=== PATIENT | male | born 1950 | race Caucasian/White ===

== ENCOUNTER 2022-09-09 09:26 | Inpatient (IN) ==
[2022-09-09] MEDS ORDERED: SODIUM CHLORIDE 0.9% 500 ML IV ONE (09:42)
[2022-09-09 10:07] LABS: Hematocrit (blood only) 25.4 % (40.1-51.0); Hemoglobin 8.1 g/dl (14.0-18.0); Mean Corpuscular Hemoglobin 28.9 pg (25.0-34.0); Mean Corpuscular Hgb Conc 31.9 g/dL (32.0-36.0); Mean Corpuscular Volume 90.7 fL (80.0-100.0); Mean Platelet Volume 9.2 fL (9.4-12.4); Platelet Count 452 K/uL (130-400); RDW Coefficient of Variation 13.7 % (11.5-14.5); RDW Standard Deviation 45.5 fL (36.4-46.3)
[2022-09-09 10:27] LABS: Immature Granulocytes # (auto) 0.03 K/uL (0.00-0.02); Immature Granulocytes % (auto) 0.7 %; Lymphocytes # (auto) 0.04 K/uL (1.2-3.4); Monocytes # (auto) 0.01 K/uL (0.24-0.82); Monocytes % (auto) 0.2 %; Neutrophils # (auto) 4.12 K/uL (1.4-6.5); Neutrophils % (auto) 98.1 %
[2022-09-09 10:36] LABS: Troponin I High Sensitivity 36.2 pg/ml (0-20)
[2022-09-09 10:45] LABS: Albumin Globulin Ratio 1.2 (0.9-2); Albumin Level 3.1 gm/dl (3.4-5.0); Bilirubin,Total 0.6 mg/dl (0.2-1.0); Calcium 8.4 mg/dl (8.5-10.1); Creatinine Clr Calc Pharmacy 43.8 ml/min; Est GFR (African American) 48.8 ml/min; Est GFR (Non-African American) 42.1 ml/min; Globulin 2.5 gm/dl (2.5-4.0); Total Protein 5.6 gm/dl (6.0-8.3)
--- NOTE | 2022-09-09 10:50 | XRay Report ---
XR chest 1V portable HISTORY: weakness COMPARISON: None. FINDINGS: No pneumothorax. No pleural effusions. There is mild elevation of the right hemidiaphragm. No focal lung consolidations to suggest a pneumonia. No evidence for pulmonary edema. The heart is no rmal in size. IMPRESSION: Mild elevation of the right hemidiaphragm. Otherwise, no acute process within the chest. ACT 112: Negative or not required by law. Electronically signed by: Rick Hilton M.D. 09/09/2022 10:49 AM
[2022-09-09] MEDS ORDERED: SODIUM CHLORIDE 0.9% 1000ML 1,000 ML IV SCH ×2 (12:15→16:00)
[2022-09-09] MEDS ORDERED: DOXYCYCLINE HYCLATE 100 MG in DEXTROSE 5% 100 ML IV SCH (12:15)
[2022-09-09] MEDS ORDERED: VANCOMYCIN CONSULT ACTIVE PRN (12:56)
[2022-09-09 13:09] LABS: Influenza A virus by PCR Negative (Negative); Influenza B virus by PCR Negative (Negative)
[2022-09-09] MEDS: ERTAPENEM SODIUM 1,000 MG in SYRINGE 0 ML IV SCH (13:15)
--- NOTE | 2022-09-09 13:24 | CT Scan Report ---
CT SCAN OF THE BRAIN WITHOUT IV CONTRAST CLINICAL HISTORY: Change in mental status. Presyncope. COMPARISON STUDY: No priors. TECHNIQUE: Unenhanced axial CT scan of the brain is performed from the vertex to the skull base. A do se lowering technique was utilized adhering to the principles of ALARA. CT DOSE: 1228.24 mGy.cm FINDINGS: Brain parenchyma: There is an approximately 5 x 4 cm extra-axial calcified right parafalcine mass in the right frontal lobe seen on axial image #25. There is minimal surrounding edema, and the lesion ca uses approximately 7 mm of [id number]-[id number] midline shift. There is age-related involutional change not ing minimal microangiopathic disease. No hemorrhage is seen. There is no evidence of acute territoria l ischemia by CT criteria. Myers-white matter differentiation is preserved. No extra-axial fluid colle ction is seen. Ventricles, sulci, cisterns: Prominent secondary to involutional change. Intracranial vasculature: There is minimal atherosclerotic calcification of the cavernous carotid art eries. Calvarium: Unremarkable. Sinuses and mastoids: The paranasal sinuses are clear. The mastoid air cells are well pneumatized. Orbits: The bony orbits are grossly intact. IMPRESSION: 1. There is no hemorrhage or evidence of acute territorial ischemia by CT criteria. 2. There is an approximately 5 cm densely calcified extra-axial right parafalcine mass in the frontal region with minimal surrounding edema and mild localized right to left midline shift. The appearance is typical for a large meningioma. Neurosurgical evaluation is advised. ACT 112: Negative or not required by law. Electronically signed by: Victor Manuel Carter M.D. 09/09/2022 1:22 PM
--- NOTE | 2022-09-09 13:31 | CT Scan Report ---
ABDOMEN AND PELVIS CT WITHOUT CONTRAST CT DOSE: 432.15 mGy.cm HISTORY: sepsis, uti TECHNIQUE: Multiaxial CT images of the abdomen and pelvis were performed without contrast. A dose lo wering technique was utilized adhering to the principles of ALARA. COMPARISON STUDY: None. FINDINGS: Mild dependent changes seen within the lung bases. No pneumoperitoneum. No pneumatosis. Deg enerative changes within the lumbar spine. No acute fractures. The heart is borderline enlarged. Magaly nary artery calcifications are noted. The unenhanced spleen, adrenal glands, and pancreas unremarkabl e. There are 2 hypodense lesions within the left kidney with the largest in the upper pole measuring 5.5 cm. These are incompletely characterized on this noncontrast study but favor cysts. There is mild to moderate bilateral perinephric edema. No ureteral stones. No hydronephrosis. Mild bladder wall th ickening with adjacent fat stranding. There is also mild fat stranding surrounding the mildly enlarge d prostate gland. No pelvic free fluid. No retroperitoneal lymphadenopathy. Normal caliber abdominal aorta. The gallbladder is unremarkable. Suspect mild periportal edema. No pelvic free fluid. Suboptim al evaluation for bowel pathology due to the lack of intravenous and oral contrast. However, there is no definite bowel wall thickening or obstruction. Moderate fecal retention is noted. Normal appendix . There are few prominent gas and fluid-filled loops of proximal jejunum. However, no transition poin t to suggest a bowel obstruction at this time. IMPRESSION: 1. Mild bladder wall thickening with adjacent fat stranding. This favors a mild cystitis. Is also mil d fat stranding adjacent to the enlarged prostate gland which may represent associated prostatitis. 2. Moderate bilateral perinephric edema. This may be chronic. A bilateral pyelonephritis is considere d less likely but not entirely excluded. 3. No renal or ureteral stones. No hydronephrosis. 4. No definite bowel wall thickening or obstruction. There are few prominent gas and fluid-filled loo ps of proximal jejunum. However, no transition point to suggest a bowel obstruction at this time. 5. Suspect mild periportal edema. 6. Normal appendix. ACT 112: Negative or not required by law. Electronically signed by: Rick Hilton M.D. 09/09/2022 1:29 PM
--- NOTE | 2022-09-09 13:43 | History and Physical Report ---
DATE OF ADMISSION: 09/09/2022 CHIEF COMPLAINT: Shaking chills, falls. HISTORY OF PRESENT ILLNESS: A 72-year-old male with past medical history significant for type 2 diabetes, hyperlipidemia, incomplete right bundle-branch block, history of hypertension, history of right-sided chronic mastoiditis, eustachian tube dysfunction, sensorineural hearing loss, chronic otitis externa of right ear, history of left inguinal hernia, who was brought in because he was falling frequently at home and shaking chills. His sister lives with him. His sister later came to the hospital. As per his sister for the last 2 weeks, he is falling frequently, he is not losing consciousness, but he is falling down. It was bad the week before , but since this week, it is better. He was seen by PCP on 08/26 for dysuria, fever and balance problems and was prescribed Bactrim. His urine cultures came back as ESBL E. coli. 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 The patient is somewhat tachycardic in the ER, he is afebrile. He was given a fluid bolus His hemoglobin is 8.1. The patient's white count is 4.2, creatinine 1.5. Troponin 36.2. SARS-CoV-2 rapid test negative. Chest x-ray, no acute findings. The patient is resting comfortably. He is getting on and off shaking chills. He said he has some headache earlier, but was okay now. Earlier he also had nausea, that is okay now. Denies any blurred visions, no earaches. Has some runny nose, sore throat and dry cough. Denies any chest pain, no back pain, no abdominal pain, no shortness of breath. He states after a colonoscopy in 05/2022, he had a couple of days of black stools, but after that he never had any black stools or blood in the stools. He is peeing a lot. Denies any blood in the urine or burning micturition, no swelling in the legs, no rash. ALLERGIES: No known drug allergies. PAST MEDICAL HISTORY: As mentioned above. PAST SURGICAL HISTORY: Colonoscopies, dental surgery, EGD with biopsy, skin graft to left arias, tonsillectomy, adenoidectomy, right inguinal hernia repair. MEDICATIONS: The patient is on aspirin 81 mg p.o. daily, atorvastatin 10 mg p.o. at bedtime, losartan/hydrochlorothiazide 100/25 one tablet p.o. daily, metformin 1000 mg p.o. b.i.d., Bactrim 1 tablet p.o. b.i.d. FAMILY HISTORY: Significant for brother has throat cancer, diabetes; Mother had diabetes, hypertension and stroke; sister has brain cancer. SOCIAL HISTORY: His sister lives with him. Former user of smokeless tobacco, quit in 1998. No alcohol use. No drug use. REVIEW OF SYSTEMS: As per HPI. Rest of the review of systems is negative. PHYSICAL EXAMINATION: GENERAL: The patient is of moderate build, not in acute distress. VITAL SIGNS: Temperature 37.1, pulse 113, respiratory rate 18, blood pressure 120/62, oxygen 97% on room air. HEENT: Pupils equal, round and reactive to light. Oral mucosa moist. NECK: No JVD, no neck masses. CARDIOVASCULAR: S1 and S2 heard, tachycardia. No murmurs. RESPIRATORY SYSTEM: Normal AP diameter. No accessory muscle use. No wheezing, no crackles. ABDOMEN: Soft, bowel sounds present, nontender, no distention. CENTRAL NERVOUS SYSTEM: Alert and oriented x3. Speech is clear. No facial droop. Obeys simple commands. Insight is okay. Power 5/5 in all extremities. EXTREMITIES: No edema, no erythema. LABORATORY DATA: WBC 4.2, hemoglobin 8.1, hematocrit 25.4, platelets 452. Sodium 140, potassium 4, chloride 104, bicarbonate 17, BUN 27, creatinine 1.59, serum glucose 157, calcium 8.4, total bilirubin 0.6, AST 60, ALT 46, alkaline phosphatase 174. Troponin I high sensitivity 36.2. TSH 1.3. SARS-CoV-2 rapid test negative. IMAGING: Chest x-ray: Mild elevation of right hemidiaphragm, otherwise no acute process within the chest. EKG: Sinus tachycardia at a rate of 105, QTc of 504. ASSESSMENT AND PLAN: This is a 72-year-old male who presents with possible sepsis and urinary tract infection. 1. Severe Sepsis/Septic shock : Meets criteria with tachycardia, leukopenia, extended-spectrum beta-lactamase urinary tract infection, acute kidney injury. Lactic acid came at 5.1 We will follow repeat actic acids. Given total 3lts fluid bolus then maintenance at 125 mL per hour. We will place him on Invanz, also place him on IV vancomycin. The patient has cough and bronchitis. His COVID rapid test negative. t flu and RSV tests negative. Await, blood cultures, urine cultures. Closely monitor in the ICU. Appreciate critical acre help. Will Monitor for the response. 2. Frequent falls: Possibly from the ongoing infection and hypotension. The patient was hypotensive per the emergency medical services. We will monitor. Physical therapy and occupational therapy when stable. 3. Anemia: The patient denies any bleeding or any blood in stools or black stools currently. We will follow Hemoccults, iron studies, vitamin B12, folate levels. Hemoglobin is 8.1. Blood consent obtained. If Hemoccult comes back positive, we will consult gastrointestinal. 4. Acute kidney injury: Creatinine of 1.59. Baseline creatinine was 1.1 couple of weeks ago. Getting fluids. Avoid nephrotoxic agents. Follow the repeat laboratories. 5. Prolonged QTc on electrocardiogram with QTc of 504: We will avoid QT prolonging drugs. Follow repeat electrocardiograms. 6. Diabetes: Holding his metformin. Place on insulin sliding scale. Follow the blood sugars. We will also hold aspirin until Hemoccult studies comes back. 7. Hyperlipidemia: On statin. 8. Hypertension: Hold his home medication of Hyzaar as currently patient is in sepsis. We will monitor the blood pressure. 9. Deep venous thrombosis prophylaxis: Sequential compression devices for now. If the Hemoccult is negative, place him on heparin or Lovenox. Addendum: Ct abd/pelvis shows cystitis and possible prostatitis. Urology consult if stays here. CT head: 5 cm densely calcified extra-axial right parafalcine mass in the frontal region with minimal surrounding edema and mild localized right to left midline shift. The appearance is typical for a large meningioma.Discussed with Neurosurgery at [facility] and he says if presenting complaints is from sepsis he can be treated for sepsis and followed as out patient. Otherwise to transfer to [facility] and he said even he wont be doing any procedures until sepsis under control. D/W our critical care and was advised to transfer as patinet has midline shift and possible cause of his falls.Called back [facility] and d/w ICU and he was opinion that since the brain mass is calcified it might be slow growing and since midline shift only 7mm nothing acute a this time but he advised to talk to hospitalist for transfer. [facility] hospitalist seasoner hand seems again discussed with and and was ok for transfer but they don't have any beds today. Possible transfer in 24-48hrs. Also to call [facility] and let them know if any change in status of patient , if he gets intubated on needs any pressors. Completed paper work for transfer except d/c instructions. As the repeat lactic acid is 4.2 d/w our critical care again and were ok to transfer to ICU until patient is transferred to [facility].Appreciate critical care help. DISPOSITION: Closely monitor in ICU. Level 1, full code. PT, OT prior to discharge. Social service to help with discharge planning. Job ID: [id number] MTDD
[2022-09-09] MEDS ORDERED: VANCOMYCIN HCL 2,000 MG in SODIUM CHLORIDE 0.9% 500 ML IV ONE (14:00)
[2022-09-09] MEDS ORDERED: SODIUM CHLORIDE 0.9% 500 ML IV SCH ×2 (14:00→15:45)
[2022-09-09] MEDS ORDERED: ACETAMINOPHEN 325 MG TAB PO PRN (14:16)
[2022-09-09] MEDS ORDERED: NITROGLYCERIN SL 0.4 MG/TAB TAB SL PRN (14:16)
[2022-09-09] MEDS ORDERED: PROMETHAZINE 12.5 MG/50.5 ML BAG IV STA (14:53)
--- NOTE | 2022-09-09 14:55 | Pharmacy Report ---
Pharmacy PK ABX Note - Date of Service September 09, 2022 - Assessment and Plan Assessment 72 year old M ordered empiric vancomycin, ertapenem, and doxycycline for presumed sepsis possibly secondary to UTI. Pertinent microbiologic data includes: blood cultures x 2 obtained/pending. Outpatient urine culture reported as ESBL E.coli per H&P. Patient also noted to have cough/bronchitis. Day # 1 of antimicrobial therapy. Plan Vancomycin * Loading dose: 2000 mg IV x 1 * Maintenance dose: 1250 mg IV every 24 hours * Regimen is predicted to achieve target AUC/JULIO of 400-600 mg/L.hr * Will hold off on ordering level given uncertainty in baseline renal function (current SCr 1.59 mg/dL) * Possible JOSE? Will need to adjust dosing with improvement Ertapenem * 1 g IV q24h - dosing appropriate, no change Doxycycline * 100 mg IV BID - dosing appropriate, no change Pharmacy will continue to follow and will adjust dose/frequency as necessary. Thank you. Pharmacy has transitioned to AUC monitoring for vancomycin. AUC/JULIO is the preferred PK/PD target and is associated with decreased risk of nephrotoxicity compared to traditional trough targets.
[2022-09-09 14:58] LABS: Appearance Urine Clear (Clear); Bacteria Urine Automated Negative (Negative); Bilirubin Urine Negative (Negative); Blood Urine Negative (Negative); Color Urine Yellow; Glucose Urine UA Negative (Negative); Ketones Urine Trace (Negative); Leukocyte Esterase Urine 1+ (Negative); Nitrite Urine Negative (Negative); Protein Urine 1+ (Negative); Specific Gravity Urine 1.015 (1.000-1.030); Urobilinogen Urine Negative (Negative)
[2022-09-09] MEDS ORDERED: CARBOHYDRATES FOR HYPOGLYCEMIA PO PRN (15:00)
[2022-09-09] MEDS ORDERED: GLUCOSE 40% GEL 15 GM TUBE PO PRN (15:00)
[2022-09-09] MEDS ORDERED: GLUCAGON FOR INJ 1 MG VIAL IM PRN (15:00)
[2022-09-09] MEDS ORDERED: DEXTROSE 50% 50 ML SYRINGE IV PRN (15:00)
[2022-09-09] MEDS ORDERED: GLUCOSE 10 TAB/TUBE PO PRN (15:00)
--- NOTE | 2022-09-09 15:03 | Urology Consultation ---
Date of Consultation September 09, 2022 Assessment & Plan (1) Acute UTI: (2) Prostatitis: (3) JOSE (acute kidney injury): Plan 72yo male recently treated as an outpatient for ESBL UTI who presented today with hypotension, near syncopal episode. He was admitted to medicine service with possible sepsis and JOSE secondary to suspected prostatitis, UTI. -CT reviewed - No obstructing stones or hydronephrosis, Mild bladder thickening, favoring cystitis, Mild fat stranding adjacent to an enlarged prostate gland which may represent prostatitis, Moderate b/l perinephric edema. -Afebrile, tachycardic. -Labs reviewed-White count 4.2, creatinine 1.5. -Urine and blood cultures are pending. (Recently treated as outpatient with Bactrim for ESBL UTI). -On IV Ertapenem and Vancomycin, follow cultures. -No acute intervention warranted. -Recommend Yan catheter placement for maximum drainage while treating infection. -Continue supportive care and antibiotic therapy. -Urology will follow. Case discussed with Dr. Ruiz, on-call urologist. Supervising Physician Co-Signing Physician Notes Discussed patient with SONIA. Agree with plan. CT scan shows no stones nor hydronephrosis. Scan not overall impressive for prostatitis. Yan catheter for maximal drainage due to suspected UTI. No urologic intervention at this time. Continue broad spectrum antibiotics and follow cultures. History of Present Illness Reason for Consultation: Prostatitis Attending Physician: Tapan Whitmore MD History of Present Illness A 72-year-old male with past medical history significant for type 2 diabetes, hyperlipidemia, incomplete right bundle-branch block, history of hypertension, history of right-sided chronic mastoiditis, eustachian tube dysfunction, sensorineural hearing loss, chronic otitis externa of right ear, history of left inguinal hernia admitted with sepsis secondary to possible prostatitis, UTI. On arrival, he was afebrile and tachycardic. White count 4.2, creatinine 1.5, Lactate 5.1. Urinalysis with 1+ LE, 1030WBC, 510RBC, negative bacteria, negative nitrite. Urine and blood cultures pending. COVID and influenza test negative. Pt started on IV Vanco and Ertapenem and admitted to medicine for further management. Urology consulted for prostatitis. Per chart review, the patient lives with his sister who reported that he has been falling frequently at home. He was also recently seen by his primary care doctor and treated for an ESBL E. coli UTI with Bactrim. Baseline creatinine was noted to be 1.1 a couple of weeks ago. Patient examined at bedside in the emergency department. Asleep on arrival, aniyah kened to name. No acute distress. Denies any significant pain at present. Voiding without issue, notes some mild dysuria. Denies hematuria. Feels he is emptying his bladder well. Denies prior urological history. Has never seen a urologist. Denies pertinent family history. CT abdomen pelvis - 1. Mild bladder wall thickening with adjacent fat stranding. This favors a mild cystitis. Is also mild fat stranding adjacent to the enlarged prostate gland which may represent associated prostatitis. 2. Moderate bilateral perinephric edema. This may be chronic. A bilateral pyelonephritis is considered less likely but not entirely excluded. 3. No renal or ureteral stones. No hydronephrosis. 4. No definite bowel wall thickening or obstruction. There are few prominent gas and fluid-filled loops of proximal jejunum. However, no transition point to suggest a bowel obstruction at this time. 5. Suspect mild periportal edema. 6. Normal appendix. Allergies Allergy/AdvReac Type Severity Reaction Status Date / Time No Known Allergies Allergy Unverified 04/17/20 14:19 Home Medications Medication Instructions Recorded Confirmed Type aspirin 81 mg tablet,delayed 81 mg PO DAILY 09/09/22 09/09/22 History release atorvastatin 10 mg tablet 10 mg PO HS 09/09/22 09/09/22 History losartan 100 1 tab PO DAILY 09/09/22 09/09/22 History mg-hydrochlorothiazide 25 mg tablet metformin 500 mg tablet,extended 1,000 mg PO BID 09/09/22 09/09/22 History release 24 hr sulfamethoxazole 800 1 tab PO BID 09/09/22 09/09/22 History mg-trimethoprim 160 mg tablet Patient History Medical History No pertinent past medical history Social History Smoking Status: Former smoker Hx Alcohol Use: No Hx Substance Use: No Preferred Language: Ugandan Communication Ability: Effective Marinator Required: No Beliefs That Will Affect Care: None Current Living Situation: Family Feels Safe at Home: Yes Review of Systems Review of Systems: All systems reviewed & are unremarkable except as noted in HPI & below Physical Exam Constitutional: no acute distress Drowsy Neck: normal visual inspection Respiratory: no respiratory distress and no labored breathing Gastrointestinal (Abdomen): Percussion/Palpation: abdomen soft; abdomen nontender and no guarding Musculoskeletal: Head/Neck/Chest: normocephalic Skin: No visible rashes or lesions to exposed skin areas Neurologic: awake Psychiatric: Orientation: alert and oriented x 3 Results & Data ([facility]) Vital Signs (Past 12 Hours) Vital Signs Temp Pulse Pulse Resp BP BP Pulse Ox 09/09/22 14:00 117 H 18 117/64 92 09/09/22 12:28 120 H 18 112/61 97 09/09/22 11:33 113 H 18 120/62 97 09/09/22 10:30 112 H 26 H 96 09/09/22 10:30 108/59 L 09/09/22 10:00 113 H 15 96 09/09/22 10:00 118/57 L 09/09/22 09:30 09/09/22 09:30 09/09/22 09:30 37.1 C 118 H 23 109/52 L 98 O2 Del Method 09/09/22 14:00 Room Air 09/09/22 12:28 Room Air 09/09/22 11:33 Room Air 09/09/22 10:30 Room Air 09/09/22 10:30 09/09/22 10:00 Room Air 09/09/22 10:00 09/09/22 09:30 Room Air 09/09/22 09:30 Room Air 09/09/22 09:30 Room Air PG Care Time/CCT Total # of Minutes Spent Total Time Spent with Patient: Total time spent is greater than 50% in coordination of care (as documented) at patient's floor/unit and/or counseling patient: Coding Level of Care Code 93599 Initial Inpt Care Lvl 2 Diagnoses Acute UTI N39.0 Prostatitis N41.9 JOSE (acute kidney injury) N17.9
[2022-09-09] MEDS: MAGNESIUM SULFATE / D5W 1 GM/100 ML BAG IV SCH ×3 (15:48→19:03)
--- NOTE | 2022-09-09 15:49 | Emergency Department Note ---
Impression & Plan Acute hypotension, JOSE (acute kidney injury), Anemia Admit to the [facility] ED Provider Note NAME: ROBERT BERRY AGE: 72 SEX: M ARRIVES VIA: Ambulance INFORMANT: Patient EMS ED PROVIDER(S): Nicole Flynn DO CHIEF COMPLAINT: Hypotension; near syncope PLAN: Disposition: Admitted to the [facility] Condition: Guarded MEDICAL DECISION MAKING: This is a 72-year-old male patient presents to the emergency department by EMS after near syncopal event. Patient has not been able to keep anything down since August 30. He has been taking antibiotics for urinary tract infection. The patient became significantly weak today. EMS was called and they found him to be significantly hypotensive. They administered IV normal saline solution and Zofran. Patient's blood pressure rebounded but he was noted to have a drop in hemoglobin from 8.6-8.1 since August 26 and a rising creatinine from 1.1- 1.5. The patient's platelets have significantly dropped from 452-185. I have discussed the case with the [facility] and they will evaluate for further management. Triage Nursing notes reviewed and agree with them. Additional history obtained from EMS Prior medical records reviewed in [facility] Vital Signs: reviewed and remarkable for hypotension and tachycardia Differential diagnosis: Dehydration, hypovolemia, sepsis, persistent UTI, JOSE, anemia ER treatment provided: IV normal saline bolus IV Zofran Diagnostics interpreted by me: ECG: Sinus tachycardia at [address] segment elevation or signs of ischemia Cardiac Monitoring: Sinus tachycardia at 112 Laboratory studies: See below Imaging studies: As per radiology Portable chest x-ray: See report HPI: 72/M arrives for evaluation of near syncope and weakness. The patient has had a cough and weakness over the past couple of days. The patient works as a deputy sheriff court services and staff noted that he had not been acting right today. He describes being near syncope. He also explains that he was diagnosed with a urinary tract infection and has been taking antibiotics and has not been able to keep anything down for the past couple of days. ROS: See above HPI for pertinent positives & negatives. A total of 10 systems reviewed and were otherwise negative. PAST MEDICAL HISTORY:Hypercholesterolemia, hypertension, diabetes PAST SURGICAL HISTORY:See Below FAMILY HISTORY:See Below SOCIAL HISTORY:Patient lives alone HOME MEDICATIONS:See list ALLERGIES:None VITALS:See Below PHYSICAL EXAMINATION: HEENT: Head - normocephalic and atraumatic. Pupils are equal, round, and reactive to light. Extraocular eye muscles are intact, and sclera are anicteric. Nose - moist nasal mucosa without discharge. Mouth - moist buccal mucosa. Oropharynx is nonerythematous and there is no tonsillar exudate or edema noted. Neck: Supple; no cervical lymphadenopathy Heart: Tachycardic rate with a regular rhythm. There is a normal S1 and S2 with no murmurs, clicks, or gallops appreciated. Lungs: Clear to auscultation bilaterally with no wheezes, rales, or rhonchi. Abdomen: Soft, completely nontender, nondistended, with good bowel sounds. There are no palpable pulsatile masses or hepatosplenomegaly. There is no guarding, rigidity, or rebound noted. Extremities: No evidence of cyanosis, clubbing, or edema. There are easily palpable peripheral pulses. Skin: warm and dry with poor turgor and no rashes. ED COURSE: Times/Reassessments: 930: Patient was evaluated in room B 12. A complete history and physical was performed. IV lock was initiated and labs were drawn as above. The patient was bolused with IV normal saline solution. A twelve-lead EKG was obtained. An order was placed for continuous cardiac monitoring. The patient was in a sinus tachycardia at a rate of 112. Portable chest x-ray was performed. Patient was able to drink benjamin lynette without difficulty. Patient was resting comfortably. I reviewed the results of laboratory and x-ray studies with the patient. I was concerned about his worsening anemia and acute kidney injury. I discussed the case with the [facility] Hospitalist. While he was awaiting admission, the patient had significant vomiting and received a dose of IV Zofran. Nicole Flynn, DO Past Med/Surg History Medical History (Updated 09/10/22 @ 15:37 by Horace Vallejo MD) No pertinent past medical history Shock Social History Smoking Status: Former smoker Hx Alcohol Use: No Hx Substance Use: No Preferred Language: Sami Communication Ability: Effective Business Risk Consultant Required: No Beliefs That Will Affect Care: Buddhism marital status: Current Living Situation: Family Feels Safe at Home: Yes Assistive Devices: None Allergies Allergies Allergy/AdvReac Type Severity Reaction Status Date / Time No Known Allergies Allergy Unverified 04/17/20 14:19 Home Meds Home Medications Medication Instructions Recorded Confirmed aspirin 81 mg tablet,delayed 81 mg PO DAILY 09/09/22 09/09/22 release atorvastatin 10 mg tablet 10 mg PO HS 09/09/22 09/09/22 losartan 100 1 tab PO DAILY 09/09/22 09/09/22 mg-hydrochlorothiazide 25 mg tablet metformin 500 mg tablet,extended 1,000 mg PO BID 09/09/22 09/09/22 release 24 hr sulfamethoxazole 800 1 tab PO BID 09/09/22 09/09/22 mg-trimethoprim 160 mg tablet Results & Data (ED) Vital Signs Vital Signs - 24 hr 09/09/22 09:30 09/09/22 09:30 09/09/22 09:30 Temperature 37.1 C Temperature Source Oral Pulse Rate 118 H Pulse Rate [Apical] Pulse Rate from SpO2 Sensor Pulse Rhythm [Apical] Respiratory Rate 23 Respiratory Effort / Characteristics Respiratory Depth Respiratory Pattern Blood Pressure 109/52 L Blood Pressure [Left Arm] Blood Pressure Mean 71 Blood Pressure Mean [Left Arm] Pulse Oximetry 98 Oxygen Delivery Method Room Air Room Air Room Air Sepsis Recent Fever Within 48 Hours No Sepsis New/Unexplained Change in Mental Status No Sepsis Action Taken by Nursing Physician Notified 09/09/22 10:00 09/09/22 10:00 09/09/22 10:30 Temperature Temperature Source Pulse Rate 113 H Pulse Rate [Apical] Pulse Rate from SpO2 Sensor 111 H Pulse Rhythm [Apical] Respiratory Rate 15 Respiratory Effort / Characteristics Respiratory Depth Respiratory Pattern Blood Pressure 118/57 L 108/59 L Blood Pressure [Left Arm] Blood Pressure Mean 77 75 Blood Pressure Mean [Left Arm] Pulse Oximetry 96 Oxygen Delivery Method Room Air Sepsis Recent Fever Within 48 Hours Sepsis New/Unexplained Change in Mental Status Sepsis Action Taken by Nursing 09/09/22 10:30 09/09/22 11:33 Temperature Temperature Source Pulse Rate 112 H Pulse Rate [Apical] 113 H Pulse Rate from SpO2 Sensor 112 H Pulse Rhythm [Apical] Regular Respiratory Rate 26 H 18 Respiratory Effort / Characteristics Non-Labored Respiratory Depth Normal Respiratory Pattern Regular Blood Pressure Blood Pressure [Left Arm] 120/62 Blood Pressure Mean Blood Pressure Mean [Left Arm] 81 Pulse Oximetry 96 97 Oxygen Delivery Method Room Air Room Air Sepsis Recent Fever Within 48 Hours Sepsis New/Unexplained Change in Mental Status Sepsis Action Taken by Nursing Laboratory Data Result diagrams: 09/10/22 12:06 09/10/22 04:19 Lab Results 09/09/22 09/09/22 09/09/22 Range/Units 09:40 09:40 09:40 WBC 4.20 L (4.8-10.8) K/ul RBC 2.80 L (4.63-6.08) M/uL Hgb 8.1 L (14.0-18.0) g/dl Hct 25.4 L (40.1-51.0) % MCV 90.7 (80.0-100.0) fL MCH 28.9 (25.0-34.0) pg MCHC 31.9 L (32.0-36.0) g/dL RDW Std Deviation 45.5 (36.4-46.3) fL RDW Coeff of Gretchen 13.7 (11.5-14.5) % Plt Count 452 H (130-400) K/uL MPV 9.2 L (9.4-12.4) fL Immature Gran % (Auto) 0.7 % Neut % (Auto) 98.1 % Lymph % (Auto) 1.0 % Brooke % (Auto) 0.2 % Eos % (Auto) 0.0 % Baso % (Auto) 0.0 % Neut # (Auto) 4.12 (1.4-6.5) K/uL Lymph # (Auto) 0.04 L (1.2-3.4) K/uL Brooke # (Auto) 0.01 L (0.24-0.82) K/uL Eos # (Auto) 0.00 (0-0.50) K/uL Baso # (Auto) 0.00 (0-0.2) K/uL Immature Gran # (Auto) 0.03 H (0.00-0.02) K/uL Toxic Vacuolation 3+ Sodium 140 (136-145) mmol/L Potassium 4.0 (3.5-5.1) mmol/L Chloride 104 (98-107) mmol/L Carbon Dioxide 17 L (21-32) mmol/L Anion Gap 19 H (3-11) BUN 27 H (6-23) mg/dl Creatinine 1.59 H (0.6-1.4) mg/dl Est Cr Clr Drug Dosing 43.8 ml/min Est GFR ( Amer) 48.8 ml/min Est GFR (Non-Af Amer) 42.1 ml/min BUN/Creatinine Ratio 17.0 (10-20) Glucose 157 H (70-99(Fasting)) mg/dl Calcium 8.4 L (8.5-10.1) mg/dl Magnesium (1.7-2.4) mg/dl Total Bilirubin 0.6 (0.2-1.0) mg/dl AST 60 H (13-39) U/L ALT 46 (7-52) U/L Alkaline Phosphatase 174 H (34-104) U/L Troponin I High Sens 36.2 H (0-20) pg/ml Total Protein 5.6 L (6.0-8.3) gm/dl Albumin 3.1 L (3.4-5.0) gm/dl Globulin 2.5 (2.5-4.0) gm/dl Albumin/Globulin Ratio 1.2 (0.9-2) Procalcitonin (0-0.5) ng/ml TSH 1.309 (0.300-4.500) uIu/ml Random Cortisol mcg/dl SARS-CoV-2, RNA, NAAT (NEGATIVE) 09/09/22 09/09/22 09/09/22 Range/Units 09:40 09:40 09:40 WBC (4.8-10.8) K/ul RBC (4.63-6.08) M/uL Hgb (14.0-18.0) g/dl Hct (40.1-51.0) % MCV (80.0-100.0) fL MCH (25.0-34.0) pg MCHC (32.0-36.0) g/dL RDW Std Deviation (36.4-46.3) fL RDW Coeff of Gretchen (11.5-14.5) % Plt Count (130-400) K/uL MPV (9.4-12.4) fL Immature Gran % (Auto) % Neut % (Auto) % Lymph % (Auto) % Brooke % (Auto) % Eos % (Auto) % Baso % (Auto) % Neut # (Auto) (1.4-6.5) K/uL Lymph # (Auto) (1.2-3.4) K/uL Brooke # (Auto) (0.24-0.82) K/uL Eos # (Auto) (0-0.50) K/uL Baso # (Auto) (0-0.2) K/uL Immature Gran # (Auto) (0.00-0.02) K/uL Toxic Vacuolation Sodium (136-145) mmol/L Potassium (3.5-5.1) mmol/L Chloride (98-107) mmol/L Carbon Dioxide (21-32) mmol/L Anion Gap (3-11) BUN (6-23) mg/dl Creatinine (0.6-1.4) mg/dl Est Cr Clr Drug Dosing ml/min Est GFR ( Amer) ml/min Est GFR (Non-Af Amer) ml/min BUN/Creatinine Ratio (10-20) Glucose (70-99(Fasting)) mg/dl Calcium (8.5-10.1) mg/dl Magnesium 1.0 L (1.7-2.4) mg/dl Total Bilirubin (0.2-1.0) mg/dl AST (13-39) U/L ALT (7-52) U/L Alkaline Phosphatase (34-104) U/L Troponin I High Sens (0-20) pg/ml Total Protein (6.0-8.3) gm/dl Albumin (3.4-5.0) gm/dl Globulin (2.5-4.0) gm/dl Albumin/Globulin Ratio (0.9-2) Procalcitonin 3.32 H (0-0.5) ng/ml TSH (0.300-4.500) uIu/ml Random Cortisol 40.39 mcg/dl SARS-CoV-2, RNA, NAAT (NEGATIVE) 09/09/22 Range/Units 11:00 WBC (4.8-10.8) K/ul RBC (4.63-6.08) M/uL Hgb (14.0-18.0) g/dl Hct (40.1-51.0) % MCV (80.0-100.0) fL MCH (25.0-34.0) pg MCHC (32.0-36.0) g/dL RDW Std Deviation (36.4-46.3) fL RDW Coeff of Gretchen (11.5-14.5) % Plt Count (130-400) K/uL MPV (9.4-12.4) fL Immature Gran % (Auto) % Neut % (Auto) % Lymph % (Auto) % Brooke % (Auto) % Eos % (Auto) % Baso % (Auto) % Neut # (Auto) (1.4-6.5) K/uL Lymph # (Auto) (1.2-3.4) K/uL Brooke # (Auto) (0.24-0.82) K/uL Eos # (Auto) (0-0.50) K/uL Baso # (Auto) (0-0.2) K/uL Immature Gran # (Auto) (0.00-0.02) K/uL Toxic Vacuolation Sodium (136-145) mmol/L Potassium (3.5-5.1) mmol/L Chloride (98-107) mmol/L Carbon Dioxide (21-32) mmol/L Anion Gap (3-11) BUN (6-23) mg/dl Creatinine (0.6-1.4) mg/dl Est Cr Clr Drug Dosing ml/min Est GFR ( Amer) ml/min Est GFR (Non-Af Amer) ml/min BUN/Creatinine Ratio (10-20) Glucose (70-99(Fasting)) mg/dl Calcium (8.5-10.1) mg/dl Magnesium (1.7-2.4) mg/dl Total Bilirubin (0.2-1.0) mg/dl AST (13-39) U/L ALT (7-52) U/L Alkaline Phosphatase (34-104) U/L Troponin I High Sens (0-20) pg/ml Total Protein (6.0-8.3) gm/dl Albumin (3.4-5.0) gm/dl Globulin (2.5-4.0) gm/dl Albumin/Globulin Ratio (0.9-2) Procalcitonin (0-0.5) ng/ml TSH (0.300-4.500) uIu/ml Random Cortisol mcg/dl SARS-CoV-2, RNA, NAAT NEGATIVE (NEGATIVE) Administered Medications Ertapenem 1,000 mg/ Syringe 10 mls @ 2 mls/min IV Q24H JS Stop: 09/19/22 12:14 Last Admin: 09/10/22 11:51 Dose: 2 mls/min Documented By: Admin: 09/09/22 13:15 Dose: 2 mls/min Documented By: Pantoprazole Sodium 40 mg/ (Syringe) 10 mls @ 5 mls/min IV BID JS Stop: 10/09/22 20:59 Last Admin: 09/10/22 08:30 Dose: 5 mls/min Documented By: Admin: 09/09/22 20:28 Dose: 5 mls/min Documented By: CATALINA Insulin Aspart (Insulin Aspart Per Unit) 0 units SC ACHS JS Stop: 10/10/22 11:59 Last Admin: 09/10/22 11:49 Dose: Not Given Documented By: XAVIER Miscellaneous (Icu Electrolyte Replacement Protocol) 1 each N/A BID@06,18 JS; Protocol Stop: 09/17/22 05:59 Last Admin: 09/10/22 05:34 Dose: 1 each Documented By: CATALINA Discontinued Medications Sodium Chloride (Nss) 500 mls @ 999 mls/hr IV .Q31M ONE Stop: 09/09/22 10:12 Last Infusion: 09/09/22 10:11 Dose: 0 mls/hr Documented By: Admin: 09/09/22 09:40 Dose: 999 mls/hr Documented By: DAVION Doxycycline Hyclate 100 mg/ (Dextrose) 110 mls @ 50 mls/hr IV Q12H JS Stop: 09/16/22 12:14 Last Infusion: 09/09/22 14:43 Dose: 0 mls/hr Documented By: Infusion: 09/09/22 14:28 Dose: 0 mls/hr Documented By: Admin: 09/09/22 13:15 Dose: 50 mls/hr Documented By: SR Sodium Chloride (Nss 1000ml) 1,000 mls @ 999 mls/hr IV .Q1H1M JS Stop: 09/09/22 13:15 Last Infusion: 09/09/22 13:19 Dose: 0 mls/hr Documented By: Admin: 09/09/22 12:18 Dose: 999 mls/hr Documented By: SR Sodium Chloride (Nss 1000ml) 1,000 mls @ 125 mls/hr IV .Q8H JS Stop: 10/09/22 12:59 Last Admin: 09/10/22 08:27 Dose: Not Given Documented By: Infusion: 09/10/22 08:26 Dose: 0 mls/hr Documented By: Admin: 09/09/22 23:57 Dose: 125 mls/hr Documented By: Admin: 09/09/22 18:05 Dose: Not Given Documented By: MADONNA Vancomycin HCl 2,000 mg/ (Sodium Chloride) 540 mls @ 200 mls/hr IV 1400 ONE; Protocol Stop: 09/09/22 16:41 Last Infusion: 09/09/22 23:18 Dose: 0 mls/hr Documented By: Admin: 09/09/22 16:52 Dose: 200 mls/hr Documented By: SR Sodium Chloride (Nss) 500 mls @ 500 mls/hr IV .Q1H JS Stop: 09/09/22 14:59 Last Infusion: 09/09/22 15:48 Dose: 0 mls/hr Documented By: Admin: 09/09/22 14:48 Dose: 500 mls/hr Documented By: SR Vancomycin HCl 1,250 mg/ (Sodium Chloride) 275 mls @ 200 mls/hr IV Q24H JS; Protocol Stop: 09/12/22 03:59 Last Infusion: 09/10/22 06:01 Dose: 0 mls/hr Documented By: Admin: 09/10/22 04:07 Dose: 200 mls/hr Documented By: CATALINA Magnesium Sulfate/Dextrose (Magnesium Sulfate / D5w) 1 gm in 100 mls @ 50 mls/hr IV Q2H JS Stop: 09/09/22 20:44 Last Infusion: 09/09/22 23:17 Dose: 0 mls/hr Documented By: BPJudy Admin: 09/09/22 19:03 Dose: 50 mls/hr Documented By: Infusion: 09/09/22 19:03 Dose: 50 mls/hr Documented By: Admin: 09/09/22 18:12 Dose: 50 mls/hr Documented By: Infusion: 09/09/22 17:48 Dose: 50 mls/hr Documented By: Admin: 09/09/22 15:48 Dose: 50 mls/hr Documented By: Promethazine HCl (Phenergan) 12.5 mg in 50.5 mls @ 202 mls/hr IV NOW STA Stop: 09/09/22 15:07 Last Infusion: 09/09/22 15:30 Dose: 0 mls/hr Documented By: Admin: 09/09/22 15:15 Dose: 202 mls/hr Documented By: SR Sodium Chloride (Nss) 500 mls @ 500 mls/hr IV .Q1H JS Stop: 09/09/22 16:44 Last Admin: 09/09/22 16:40 Dose: Not Given Documented By: SR Sodium Chloride (Nss 1000ml) 1,000 mls @ 999 mls/hr IV .Q1H1M JS Stop: 09/09/22 17:00 Last Infusion: 09/09/22 17:11 Dose: 0 mls/hr Documented By: Admin: 09/09/22 15:50 Dose: 999 mls/hr Documented By: Magnesium Sulfate/Dextrose (Magnesium Sulfate / D5w) 1 gm in 100 mls @ 50 mls/hr IV Q2H JS Stop: 09/10/22 13:44 Last Infusion: 09/10/22 13:48 Dose: 0 mls/hr Documented By: Admin: 09/10/22 11:48 Dose: 50 mls/hr Documented By: Infusion: 09/10/22 11:48 Dose: 50 mls/hr Documented By: Admin: 09/10/22 10:04 Dose: 50 mls/hr Documented By: Infusion: 09/10/22 10:04 Dose: 50 mls/hr Documented By: Admin: 09/10/22 08:30 Dose: 50 mls/hr Documented By: Infusion: 09/10/22 08:25 Dose: 0 mls/hr Documented By: Admin: 09/10/22 06:00 Dose: 50 mls/hr Documented By: CATALINA Sodium Phosphate 15 mmol/ (Sodium Chloride) 255 mls @ 88 mls/hr IV ONE ONE Stop: 09/10/22 08:38 Last Infusion: 09/10/22 09:02 Dose: 0 mls/hr Documented By: Admin: 09/10/22 06:00 Dose: 88 mls/hr Documented By: CATALINA Insulin Aspart (Insulin Aspart Per Unit) 0 units SC ACHS JS Stop: 10/09/22 16:29 Last Admin: 09/09/22 17:04 Dose: Not Given Documented By: Co-signed By: JOHN Insulin Aspart (Insulin Aspart Per Unit) 0 units SC Q6 [facility] Stop: 10/09/22 17:59 Last Admin: 09/10/22 06:58 Dose: Not Given Documented By: Admin: 09/10/22 00:13 Dose: Not Given Documented By: Admin: 09/09/22 18:20 Dose: 1 units Documented By: MADONNA Co-signed By: DANIEL Norepinephrine Bitartrate (Norepinephrine/D5w 4 Mg/250 Ml) Confirm Administered Dose 4 mg IV .STK-MED ONE Stop: 09/09/22 17:47 Last Admin: 09/09/22 18:06 Dose: Not Given Documented By: MADONNA Imaging Data Radiologist's Impression: Chest X-Ray 09/09/22 09:42 XR chest 1V portable HISTORY: weakness COMPARISON: None. FINDINGS: No pneumothorax. No pleural effusions. There is mild elevation of the right hemidiaphragm. No focal lung consolidations to suggest a pneumonia. No evidence for pulmonary edema. The heart is normal in size. IMPRESSION: Mild elevation of the right hemidiaphragm. Otherwise, no acute process within the chest. ACT 112: Negative or not required by law. Electronically signed by: Rick Hilton M.D. 09/09/2022 10:49 AM Discharge Plan Visit Data Chief Complaint: Hypotension Stated Complaint: HYPOTENSION, WEAKNESS ED Provider: Nicole Flynn Discharge Problem: Acute hypotension, JOSE (acute kidney injury), Anemia Patient Disposition: Admitted As Inpatient Discharge Instructions Interventions: ED Discharge Assessment Last Done: 09/09/22 13:59 : Anemia Qualifiers: Anemia type: unspecified type Qualified Code(s): D64.9 - Anemia, unspecified
[2022-09-09] MEDS ORDERED: INSULIN ASPART PER UNIT SC SCH (16:30)
--- NOTE | 2022-09-09 16:46 | Critical Care Consultation ---
Date of Consultation September 09, 2022 Assessment & Plan (1) Shock circulatory: (2) JOSE (acute kidney injury): (3) Anemia: (4) Acute UTI: (5) ESBL (extended spectrum beta-lactamase) producing bacteria infection: (6) Meningioma: (7) Frequent falls: (8) Diabetes mellitus: Plan Reason Critically Ill: 72-year-old male past medical history of diabetes, chronic otitis externa of the right, incomplete right bundle branch block, hypertension, diabetes presented to the hospital for sepsis. Sent to the ICU for septic shock Chest x-ray 09/09/2022: Elevated right hemidiaphragm, bilateral costophrenic and cardiophrenic anteroseptal pain, no clear lung infiltrate appreciated Neuro - [facility] ICU: Negative -- 5 cm calcified extra-axial right parafalcine mass Likely meningioma Minimal surrounding edema with localized right to left midline shift Neurosurgery was called by Dr. Whitmore and they recommended conservative management right now. Cardiac - -- Septic shock Patient got 2.5 l IV fluid bolus Systolic blood pressure was still on the lower side Start vasopressors to keep MAP greater than 65 --Elevated troponin Likely type II HI No ST-T wave changes appreciated on the EKG done 09/09/2022 Continue to trend troponin --Prolonged QTC Avoid QT prolonging medications Respiratory - -- Saturating well on room air GI - -- Nausea and vomiting Likely from underlying sepsis Continue to monitor -- Melena Monitor H&H Trend visit hemoglobin less than 7 RENAL/LYTES - -- JOSE Follow-up urine lites Monitor BUN/creatinine Avoid nephrotoxic medications Strict ins and outs -- HAGMA Likely sec to lactic acidosis Monitor - No acute issues ENDO - -- Diabetes type 2 Continue with ICU hypoglycemia protocol HEME - -- Normocytic anemia Monitor H&H ID - -- ESBL in the urine with possible pyelonephritis Continue with Carbapenem Follow-up blood culture --Prophylaxis VTE: IPC GI: Pantoprazole Lines: Peripheral Diet: N.p.o. Plan: Strict in and out Continue with ertapenem Follow-up blood culture and urine culture. Start the patient on Normosol 100 mL/h. Repeat CBC, CMP, mag and Phos If hemoglobin is trending less than 7, transfuse blood Follow-up nasal MRSA Keep the MAP greater than 65. Start Levophed if need be. I have personally spent 57 minutes of critical care time in the direct management of this patient. This is a life/limb threatening event. This includes time spent evaluating patient, direct bedside care, chart review, placing orders, interpretation of diagnostic studies, discussion with consultants, patient, and family members, as well as other required patient management activities. This time is exclusive of all separately billable procedures, and teaching time and separate from and in addition to any other critical care service time. History of Present Illness Attending Physician: Tapan Wihtmore MD History of Present Illness 72-year-old male coming to hospital with complaints of dizziness and vomiting Past medical history: Type 2 diabetes, dyslipidemia, incomplete right bundle branch block, hypertension, chronic otitis externa of the right ear Patient had UTI as an outpatient culture grew ESBL as per hospitalist looking at the epic record ICU was consulted as patient got 2 and half liters and he was still hypotensive. At the time of examination patient systolic blood pressure was 87. He was warm with temperature of 37.1 Not in any respiratory distress. Denied any dizziness right now. He was dizzy prior to coming to the hospital. No nausea or vomiting since coming to the hospital. He states that he feels little bit better compared to when he came to the hospital. Does complain of dysuria at home. No hematuria No headache right now. Denies any blurry vision Social history: Non-smoker. Used to chew tobacco quit in 1998. Denies any illicit drug use Allergies Allergy/AdvReac Type Severity Reaction Status Date / Time No Known Allergies Allergy Unverified 04/17/20 14:19 Home Medications Medication Instructions Recorded Confirmed Type aspirin 81 mg tablet,delayed 81 mg PO DAILY 09/09/22 09/09/22 History release atorvastatin 10 mg tablet 10 mg PO HS 09/09/22 09/09/22 History losartan 100 1 tab PO DAILY 09/09/22 09/09/22 History mg-hydrochlorothiazide 25 mg tablet metformin 500 mg tablet,extended 1,000 mg PO BID 09/09/22 09/09/22 History release 24 hr sulfamethoxazole 800 1 tab PO BID 09/09/22 09/09/22 History mg-trimethoprim 160 mg tablet Patient History Medical History No pertinent past medical history Social History Smoking Status: Never smoker Preferred Language: Malay Feels Safe at Home: Yes Review of Systems Review of Systems: All systems reviewed & are unremarkable except as noted in HPI & below Physical Exam Physical Exam: Constitutional: No acute distress HEENT: EOMI, PERRLA Respiratory system: Good air entry bilaterally, no wheeze, no rhonchi, mild crackles bilateral lower lobes CVS: S1-S2 positive, no murmurs or gallops, tachycardia Abdomen: Soft, nontender, nondistended, positive bowel sounds x4 Extremities: +2 pulses bilaterally radialis/ dorsalis pedis, no cyanosis, no edema Neuro: Awake alert oriented x3 Psych: Normal mood and affect G/U: No Yan Skin: no rashes, warm and dry Lymphatic: no cervical or axillary lymphadenopathy Results & Data Results & Data ([facility]) Vital Signs (Past 12 Hours) Vital Signs Temp Pulse Pulse Resp BP BP Pulse Ox 09/09/22 14:16 09/09/22 15:37 116 H 16 97/58 L 94 09/09/22 14:00 117 H 18 117/64 92 09/09/22 12:28 120 H 18 112/61 97 09/09/22 11:33 113 H 18 120/62 97 09/09/22 10:30 112 H 26 H 96 09/09/22 10:30 108/59 L 09/09/22 10:00 113 H 15 96 09/09/22 10:00 118/57 L 09/09/22 09:30 09/09/22 09:30 09/09/22 09:30 37.1 C 118 H 23 109/52 L 98 Pulse Ox O2 Del Method O2 Del Method 09/09/22 14:16 93 Room Air 09/09/22 15:37 Room Air 09/09/22 14:00 Room Air 09/09/22 12:28 Room Air 09/09/22 11:33 Room Air 09/09/22 10:30 Room Air 09/09/22 10:30 09/09/22 10:00 Room Air 09/09/22 10:00 09/09/22 09:30 Room Air 09/09/22 09:30 Room Air 09/09/22 09:30 Room Air Laboratory Results 09/09/22 09:40 09/09/22 09:40 Coding Level of Care Code Critical Care 1st 30-74 mins Diagnoses Shock circulatory R57.9 JOSE (acute kidney injury) N17.9 Anemia D64.9 Anemia type: unspecified type Acute UTI N39.0 ESBL (extended spectrum beta-lactamase) producing bacteria infection A49.9; Z16.12 Meningioma D32.9 Frequent falls R29.6 Diabetes mellitus E11.9 Time Spent (min) 57 (1) Anemia Anemia type: unspecified type Qualified Code(s): D64.9 - Anemia, unspecified
[2022-09-09] MEDS ORDERED: NOREPINEPHRINE/D5W 4 MG/250 ML IV ONE (17:46)
[2022-09-09] MEDS: SODIUM CHLORIDE 0.9% 1000ML 1,000 ML IV SCH ×2 (18:05→23:57)
[2022-09-09] MEDS: INSULIN ASPART PER UNIT SC SCH (18:20)
[2022-09-09 18:33] LABS: Hematocrit (blood only) 21.9 % (40.1-51.0); Hemoglobin 7.2 g/dl (14.0-18.0); Mean Corpuscular Hemoglobin 29.4 pg (25.0-34.0); Mean Corpuscular Hgb Conc 32.9 g/dL (32.0-36.0); Mean Corpuscular Volume 89.4 fL (80.0-100.0); Mean Platelet Volume 9.1 fL (9.4-12.4); Platelet Count 304 K/uL (130-400); RDW Coefficient of Variation 13.8 % (11.5-14.5); RDW Standard Deviation 44.9 fL (36.4-46.3); Red Blood Count 2.45 M/uL (4.63-6.08); White Blood Count 8.86 K/ul (4.8-10.8)
[2022-09-09 18:54] LABS: Albumin Globulin Ratio 1.2 (0.9-2); Albumin Level 2.6 gm/dl (3.4-5.0); BUN Creatinine Ratio 16.8 (10-20); Bilirubin,Total 0.4 mg/dl (0.2-1.0); Calcium 7.4 mg/dl (8.5-10.1); Creatinine Clr Calc Pharmacy 43.2 ml/min; Est GFR (African American) 48.1 ml/min; Est GFR (Non-African American) 41.5 ml/min; Globulin 2.2 gm/dl (2.5-4.0); Magnesium 1.2 mg/dl (1.7-2.4); Phosphorus 1.6 mg/dl (2.5-4.9); Total Protein 4.8 gm/dl (6.0-8.3)
[2022-09-09] MEDS ORDERED: SODIUM CHLORIDE 0.9% 250 ML IV PRN (19:10)
[2022-09-09 19:19] LABS: Basophils # (auto) 0.01 K/uL (0-0.2); Basophils % (auto) 0.1 %; Immature Granulocytes # (auto) 0.16 K/uL (0.00-0.02); Immature Granulocytes % (auto) 1.8 %; Lymphocytes # (auto) 0.06 K/uL (1.2-3.4); Lymphocytes % (auto) 0.7 %; Monocytes # (auto) 0.47 K/uL (0.24-0.82); Monocytes % (auto) 5.3 %; Neutrophils # (auto) 8.16 K/uL (1.4-6.5); Neutrophils % (auto) 92.1 %; Polychromasia 1+
[2022-09-09 20:01] LABS: Appearance Urine Clear (Clear); Bacteria Urine Automated Negative (Negative); Bilirubin Urine Negative (Negative); Blood Urine Negative (Negative); Color Urine Yellow; Glucose Urine UA Negative (Negative); Ketones Urine Negative (Negative); Leukocyte Esterase Urine Trace (Negative); Nitrite Urine Negative (Negative); Protein Urine Trace (Negative); RBC Urine Automated 0-4 /hpf (0-4); Specific Gravity Urine 1.014 (1.000-1.030); Urobilinogen Urine Negative (Negative)
[2022-09-09] MEDS: PANTOprazole 40 MG in SYRINGE 0 ML IV SCH (20:28)
[2022-09-09 20:33] LABS: Creatinine Urine Random 97.8 mg/dl; Potassium Random Urine 43.4 mmol/L
--- NOTE | 2022-09-09 20:54 | Electrocardiogram Report ---
Test Reason : Blood Pressure : / mmHG Vent. Rate : 105 BPM Atrial Rate : 105 BPM P-R Int : 132 ms QRS Dur : 076 ms QT Int : 382 ms P-R-T Axes : 049 -26 046 degrees QTc Int : 504 ms Poor data quality, interpretation may be adversely affected Sinus tachycardia Otherwise normal ECG No previous ECGs available Confirmed by Wiley Pham ([id number]) on 09/09/2022 8:54:25 PM Referred By: REFERRED SELF Confirmed By:Stephane Pham
[2022-09-09] MEDS ORDERED: Flu Vaccine-High Dose (Fluzone-HD) PF 65+ 0.7mL SYR IM ONE (21:45)
[2022-09-10] MEDS: INSULIN ASPART PER UNIT SC SCH ×4 (00:13→17:55)
[2022-09-10] MEDS ORDERED: VANCOMYCIN HCL 1,000 MG in SODIUM CHLORIDE 0.9% 250 ML IV SCH (02:00)
[2022-09-10] MEDS ORDERED: VANCOMYCIN HCL 1,250 MG in SODIUM CHLORIDE 0.9% 250 ML IV SCH (04:00)
[2022-09-10 04:46] LABS: Basophils # (auto) 0.01 K/uL (0-0.2); Basophils % (auto) 0.1 %; Eosinophils # (auto) 0.01 K/uL (0-0.50); Eosinophils % (auto) 0.1 %; Hematocrit (blood only) 23.8 % (40.1-51.0); Hemoglobin 7.8 g/dl (14.0-18.0); Immature Granulocytes % (auto) 1.1 %; Lymphocytes # (auto) 0.45 K/uL (1.2-3.4); Mean Corpuscular Hgb Conc 32.8 g/dL (32.0-36.0); Mean Corpuscular Volume 88.5 fL (80.0-100.0); Mean Platelet Volume 9.3 fL (9.4-12.4); Monocytes # (auto) 0.46 K/uL (0.24-0.82); Monocytes % (auto) 5.1 %; Neutrophils # (auto) 7.91 K/uL (1.4-6.5); Neutrophils % (auto) 88.6 %; Platelet Count 290 K/uL (130-400); RDW Coefficient of Variation 14.7 % (11.5-14.5); RDW Standard Deviation 46.9 fL (36.4-46.3); Red Blood Count 2.69 M/uL (4.63-6.08); White Blood Count 8.94 K/ul (4.8-10.8)
[2022-09-10 05:25] LABS: BUN Creatinine Ratio 18.2 (10-20); Calcium 7.3 mg/dl (8.5-10.1); Est GFR (African American) 53.3 ml/min; Magnesium 1.7 mg/dl (1.7-2.4); Phosphorus 2.5 mg/dl (2.5-4.9); Potassium 4.5 mmol/L (3.5-5.1)
[2022-09-10] MEDS ORDERED: SODIUM PHOSPHATE 3 MMOL/1 ML INFUSION IV STA (05:38)
[2022-09-10] MEDS ORDERED: SODIUM PHOSPHATE 15 MMOL in SODIUM CHLORIDE 0.9% 250 ML IV ONE (05:45)
[2022-09-10] MEDS ORDERED: ICU ELECTROLYTE REPLACEMENT PROTOCOL SCH (06:00)
[2022-09-10] MEDS: MAGNESIUM SULFATE / D5W 1 GM/100 ML BAG IV SCH ×4 (06:00→11:48)
[2022-09-10] MEDS ORDERED: MAGNESIUM SULFATE / D5W 1 GM/100 ML BAG IV SCH (06:15)
[2022-09-10 07:19] LABS: Estimated Average Glucose 151 mg/dl; Hemoglobin A1C 6.9 % (4.5-5.6)
[2022-09-10 07:51] LABS: Toxic Vacuolation 3+
[2022-09-10] MEDS: SODIUM CHLORIDE 0.9% 1000ML 1,000 ML IV SCH (08:27)
[2022-09-10] MEDS: PANTOprazole 40 MG in SYRINGE 0 ML IV SCH (08:30)
--- NOTE | 2022-09-10 08:30 | Critical Care Progress Note ---
Date of Service September 10, 2022 Assessment & Plan (1) Shock circulatory: (2) JOSE (acute kidney injury): (3) Anemia: (4) Acute UTI: (5) ESBL (extended spectrum beta-lactamase) producing bacteria infection: (6) Meningioma: (7) Frequent falls: (8) Diabetes mellitus: Plan Reason Critically Ill: 72-year-old male past medical history of diabetes, chronic otitis externa of the right, incomplete right bundle branch block, hypertension, diabetes presented to the hospital for sepsis. Sent to the ICU for septic shock Chest x-ray 09/09/2022: Elevated right hemidiaphragm, bilateral costophrenic and cardiophrenic anteroseptal pain, no clear lung infiltrate appreciated Neuro - [facility]: Negative -- 5 cm calcified extra-axial right parafalcine mass Likely meningioma Minimal surrounding edema with localized right to left midline shift Neurosurgery was called by Dr. Whitmore and they recommended conservative management right now. Cardiac - -- Hypotension Likely from sepsis Responded to fluid Systolic blood pressure was still on the lower side Start vasopressors to keep MAP greater than 65 --Elevated troponin Likely type II MN No ST-T wave changes appreciated on the EKG done 09/09/2022 Continue to trend troponin --Prolonged QTC Avoid QT prolonging medications Respiratory - -- Saturating well on room air GI - -- Nausea and vomiting --> improved Likely from underlying sepsis Continue to monitor -- Melena Monitor H&H S/p 1 unit PRBC 09/09/2022 Trend visit hemoglobin less than 7 RENAL/LYTES - -- JOSE --> improving Monitor BUN/creatinine Avoid nephrotoxic medications Strict ins and outs -- S/p HAGMA Likely sec to lactic acidosis Monitor - No acute issues ENDO - -- Diabetes type 2 Continue with ICU hypoglycemia protocol HEME - -- Normocytic anemia Monitor H&H ID - -- ESBL in the urine with possible pyelonephritis Continue with Carbapenem Follow-up blood culture --Prophylaxis VTE: IPC GI: Pantoprazole Lines: Peripheral Diet: Start clear liquid and advance as tolerated Plan: In/out: +3.7 L, urine output 700 mL Hypomagnesemia being replaced Patient did get 1 unit of PRBC. Monitor H&H. Stool occult blood. Blood pressure is still on the softer side with systolic in the low 90s. Map has been greater than 65. He did not need any vasopressors. Would avoid any more IV fluids I will start the patient on clear liquids and advance as tolerated. Continue to monitor in the ICU for another 6-8 hours. If his hemodynamically stable at the end of it then can be downgraded to medical floor. Please note the above document was generated using voice recognition software. It may contain grammatical, syntax or spelling errors.Any formal questions or concerns about the content, text or information contained within the body of this dictation should be directly addressed to the provider for clarification. Admission and Anticipated Discharge Date Admission Date: September 09, 2022 Subjective Patient seen and examined at bedside. No acute distress, no adverse events overnight. Overall he says he is feeling much better No nausea vomiting Did not throw up since coming to the hospital Mild dysuria. No bowel movement since coming to the hospital No headache, no blurry vision, no dizziness Review of Systems Review of Systems: All systems reviewed & are unremarkable except as noted in Subjective Physical Exam Physical Exam: Constitutional: No acute distress HEENT: EOMI, PERRLA Respiratory system: Good air entry bilaterally, no wheeze, no rhonchi, mild crackles bilateral lower lobes CVS: S1-S2 positive, no murmurs or gallops Abdomen: Soft, nontender, nondistended, positive bowel sounds x4 Extremities: +2 pulses bilaterally radialis/ dorsalis pedis, no cyanosis, no ed cortes Neuro: Awake alert oriented x3 Psych: Normal mood and affect G/U: No Yan Skin: no rashes, warm and dry Lymphatic: no cervical or axillary lymphadenopathy Results & Data Results & Data ([facility]) Vital Signs (Past 12 Hours) Vital Signs Temp Pulse Resp BP Pulse Ox O2 Del Method 09/10/22 04:00 79 14 96 Room Air 09/10/22 04:00 94/51 L 09/10/22 03:00 78 24 98 09/10/22 03:00 95/50 L 09/10/22 02:00 79 23 95 09/10/22 02:00 94/45 L 09/10/22 01:00 84 13 94 09/10/22 01:00 97/49 L 09/10/22 00:00 82 14 97 Room Air 09/10/22 00:00 86/48 L 09/10/22 04:10 37.0 C 09/10/22 01:04 85 12/01/22 23:00 88 24 94 09/09/22 23:00 96/48 L 09/09/22 22:45 93/51 L 09/09/22 22:45 84 14 95 09/09/22 22:30 90 20 93 09/09/22 22:30 93/51 L 09/09/22 22:29 95/50 L 09/09/22 22:29 85 23 93 09/09/22 22:15 87 20 95 09/09/22 22:15 87/54 L 09/09/22 22:00 86 20 95 09/09/22 22:00 94/54 L 09/09/22 21:45 96/49 L 09/09/22 21:45 89 20 95 09/09/22 21:30 87 20 96 09/09/22 21:30 91/54 L 09/09/22 21:15 93/57 L 09/09/22 21:15 91 H 22 93 09/09/22 21:00 90 18 92 09/09/22 21:00 95/53 L 09/09/22 20:45 90/53 L 09/09/22 20:45 89 20 93 09/09/22 20:30 87 15 94 09/09/22 20:30 109/67 09/09/22 23:24 37.1 C 85 14 96/48 L 94 09/09/22 22:40 37.1 C 85 20 94 09/09/22 21:35 37.1 C 87 14 91/54 L 96 09/09/22 21:05 37.1 C 84 14 93/57 L 96 09/09/22 22:45 37.1 C 09/09/22 20:50 37.1 C 89 20 90/53 L 93 Laboratory Results 09/10/22 04:19 09/10/22 04:19 Coding Level of Care Code 57525 Subseq Hosp Care Lvl 3 Diagnoses Shock circulatory R57.9 JOSE (acute kidney injury) N17.9 Anemia D64.9 Anemia type: unspecified type Acute UTI N39.0 ESBL (extended spectrum beta-lactamase) producing bacteria infection A49.9; Z16.12 Meningioma D32.9 Frequent falls R29.6 Diabetes mellitus E11.9 (1) Anemia Anemia type: unspecified type Qualified Code(s): D64.9 - Anemia, unspecified
[2022-09-10] MEDS ORDERED: Nursing to Pharmacy Communication SCH (11:45)
[2022-09-10] MEDS: ERTAPENEM SODIUM 1,000 MG in SYRINGE 0 ML IV SCH (11:51)
[2022-09-10 12:48] LABS: Hematocrit (blood only) 26.2 % (40.1-51.0); Hemoglobin 8.6 g/dl (14.0-18.0)
--- NOTE | 2022-09-10 15:20 | Hospitalist Progress Note ---
Date of Service September 10, 2022 Assessment & Plan (1) Shock: Plan: Patient is a 72 yr male who presents with sepsis and urinary tract infection. Septic shock Possible source cystitis, prostatitis UTI H/O ESBL --CT ABD:1. Mild bladder wall thickening with adjacent fat stranding. This favors a mild cystitis. Is also mild fat stranding adjacent to the enlarged prostate gland which may represent associated prostatitis. Moderate bilateral perinephric edema. This may be chronic. A bilateral pyelonephritis is considered less likely but not entirely excluded. No renal or ureteral stones. No hydronephrosis. No definite bowel wall thickening or obstruction. There are few prominent gas and fluid-filled loops of proximal jejunum. However, no transition point to suggest a bowel obstruction at this time. Suspect mild periportal edema. Normal appendix. -- Blood, urine culture pending --Empirically received vancomycin, Invanz Currently on vancomycin only Appreciate critical care input Received IV fluids JOSE Likely ATN Cr 1.48 today Monitor renal function Avoid nephrotoxic agents as able Presyncope Suspected large meningioma with mild localized right to left midline shift --CT Head:1. There is no hemorrhage or evidence of acute territorial ischemia by CT criteria. There is an approximately 5 cm densely calcified extra-axial right parafalcine mass in the frontal region with minimal surrounding edema and mild localized right to left midline shift. The appearance is typical for a large meningioma. Neurosurgical evaluation is advised. -- Admitting physician discussed with neurosurgery at [facility] --Accepted to tertiary care facility for further management as patient needs neurosurgery evaluation Frequent falls: Likely due to above Fall precautions PT OT Elevated troponin Likely type II [place] Trend troponin QTC prolongation Avoid QTC prolonging meds Monitor Melena S/P 1 unit PRBCs Normal B12, folate Iron 21, transferrin 8 Currently denies any bleeding issues Monitor H&H and transfuse as needed Aspirin held for now FOBT pending High anion gap metabolic acidosis Likely secondary to lactic acidosis Monitor BMP DM II Hold metformin Continue Insulin while hospitalized Hyperlipidemia: On statin. 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 Review of Systems Review of Systems: All systems reviewed & are unremarkable except as noted in Subjective Physical Exam Physical Exam: Physical Exam: Vitals signs as noted above General Appearance:Moderately built and nourished, no apparent distress Head: normocephalic, Atraumatic Eyes: normal inspection, EOMI Neck: supple, Trachea midline Respiratory/Chest: Coarse breath sounds, No accessory muscle use Cardiovascular: S1, S2, No murmur Abdomen/GI:Soft, Non tender, Bowel sounds present Extremities/Musculoskeletal:normal inspection, Trace edema Neurologic/Psych:AAOX3, grossly no focal neurological deficits Skin: normal color, warm Results & Data Results & Data ([facility]) Vital Signs (Past 12 Hours) Vital Signs Temp Pulse Resp BP Pulse Ox O2 Del Method 09/10/22 10:00 84 30 H 124/56 L 98 09/10/22 07:00 36.9 C 09/10/22 09:00 80 22 94/55 L 97 09/10/22 09:07 77 09/10/22 08:00 79 12 96/55 L 97 09/10/22 07:00 77 18 99/52 L 96 09/10/22 04:00 79 14 96 Room Air 09/10/22 04:00 94/51 L 09/10/22 04:10 37.0 C Laboratory Results Short CBC 09/09/22 09/10/22 09/10/22 Range/Units 18:24 04:19 12:06 WBC 8.86 8.94 (4.8-10.8) K/ul Hgb 7.2 L 7.8 L 8.6 L (14.0-18.0) g/dl Hct 21.9 L 23.8 L 26.2 L (40.1-51.0) % Plt Count 304 290 (130-400) K/uL [facility] 09/09/22 09/10/22 18:24 04:19 Sodium 137 140 Potassium 4.0 4.5 Chloride 107 110 H Carbon Dioxide 22 25 BUN 27 H 27 H Creatinine 1.61 H 1.48 H Glucose 178 H 106 H Calcium 7.4 L 7.3 L Liver Function 09/09/22 Range/Units 18:24 Total Bilirubin 0.4 (0.2-1.0) mg/dl AST 42 H (13-39) U/L ALT 43 (7-52) U/L Alkaline Phosphatase 139 H (34-104) U/L Albumin 2.6 L (3.4-5.0) gm/dl Urine 09/09/22 Range/Units 19:30 Urine Color Yellow Urine Appearance Clear (Clear) Urine pH 5.0 (4.5-7.5) Ur Specific [place] 1.014 (1.000-1.030) Urine Protein Trace H (Negative) Urine Glucose (UA) Negative (Negative)
--- NOTE | 2022-09-10 15:56 | Discharge Summary ---
Date of Service September 10, 2022 Admission HPI Per Admitting Provider CHIEF COMPLAINT: Shaking chills, falls. HISTORY OF PRESENT ILLNESS: A 72-year-old male with past medical history significant for type 2 diabetes, hyperlipidemia, incomplete right bundle-branch block, history of hypertension, history of right-sided chronic mastoiditis, eustachian tube dysfunction, sensorineural hearing loss, chronic otitis externa of right ear, history of left inguinal hernia, who was brought in because he was falling frequently at home and shaking chills. His sister lives with him. His sister later came to the hospital. As per his sister for the last 2 weeks, he is falling frequently, he is not losing consciousness, but he is falling down. It was bad the week before , but since this week, it is better. He was seen by PCP on 08/26 for dysuria, fever and balance problems and was prescribed Bactrim. His urine cultures came back as ESBL E. coli. 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 The patient is somewhat tachycardic in the ER, he is afebrile. He was given a fluid bolus His hemoglobin is 8.1. The patient's white count is 4.2, creatinine 1.5. Troponin 36.2. SARS-CoV-2 rapid test negative. Chest x-ray, no acute findings. The patient is resting comfortably. He is getting on and off shaking chills. He said he has some headache earlier, but was okay now. Earlier he also had nausea, that is okay now. Denies any blurred visions, no earaches. Has some runny nose, sore throat and dry cough. Denies any chest pain, no back pain, no abdominal pain, no shortness of breath. He states after a colonoscopy in 05/2022, he had a couple of days of black stools, but after that he never had any black stools or blood in the stools. He is peeing a lot. Denies any blood in the urine or burning micturition, no swelling in the legs, no rash. Admission Exam Per Admitting Provider PHYSICAL EXAMINATION: GENERAL: The patient is of moderate build, not in acute distress. VITAL SIGNS: Temperature 37.1, pulse 113, respiratory rate 18, blood pressure 120/62, oxygen 97% on room air. HEENT: Pupils equal, round and reactive to light. Oral mucosa moist. NECK: No JVD, no neck masses. CARDIOVASCULAR: S1 and S2 heard, tachycardia. No murmurs. RESPIRATORY SYSTEM: Normal AP diameter. No accessory muscle use. No wheezing, no crackles. ABDOMEN: Soft, bowel sounds present, nontender, no distention. CENTRAL NERVOUS SYSTEM: Alert and oriented x3. Speech is clear. No facial droop. Obeys simple commands. Insight is okay. Power 5/5 in all extremities. EXTREMITIES: No edema, no erythema. Principal Diagnosis Septic shock Possible source cystitis, prostatitis H/O ESBL Acute kidney injury Presyncopal Suspected large meningioma with mild localized right to left midline shift Frequent falls Melena Discharge Data Allergies Allergy/AdvReac Type Severity Reaction Status Date / Time No Known Allergies Allergy Unverified 04/17/20 14:19 Consultations 09/09/22 11:28 ED Decision to Admit Stat 09/09/22 18:04 Consult [employer] Routine Procedures Performed Laboratory Results WBC 8.94 K/ul (4.8-10.8) 09/10/22 04:19 RBC 2.69 M/uL (4.63-6.08) L 09/10/22 04:19 Hgb 8.6 g/dl (14.0-18.0) L 09/10/22 12:06 Hct 26.2 % (40.1-51.0) L 09/10/22 12:06 MCV 88.5 fL (80.0-100.0) 09/10/22 04:19 MCH 29.0 pg (25.0-34.0) 09/10/22 04:19 MCHC 32.8 g/dL (32.0-36.0) 09/10/22 04:19 RDW Std Deviation 46.9 fL (36.4-46.3) H 09/10/22 04:19 RDW Coeff of Gretchen 14.7 % (11.5-14.5) H 09/10/22 04:19 Plt Count 290 K/uL (130-400) 09/10/22 04:19 MPV 9.3 fL (9.4-12.4) L 09/10/22 04:19 Immature Gran % (Auto) 1.1 % 09/10/22 04:19 Neut % (Auto) 88.6 % 09/10/22 04:19 Lymph % (Auto) 5.0 % 09/10/22 04:19 Yates % (Auto) 5.1 % 09/10/22 04:19 Eos % (Auto) 0.1 % 09/10/22 04:19 Baso % (Auto) 0.1 % 09/10/22 04:19 Neut # (Auto) 7.91 K/uL (1.4-6.5) H 09/10/22 04:19 Lymph # (Auto) 0.45 K/uL (1.2-3.4) L 09/10/22 04:19 Yates # (Auto) 0.46 K/uL (0.24-0.82) 09/10/22 04:19 Eos # (Auto) 0.01 K/uL (0-0.50) 09/10/22 04:19 Baso # (Auto) 0.01 K/uL (0-0.2) 09/10/22 04:19 Immature Gran # (Auto) 0.10 K/uL (0.00-0.02) H 09/10/22 04:19 Toxic Vacuolation 3+ 09/09/22 09:40 Polychromasia 1+ 09/09/22 18:24 Sodium 140 mmol/L (136-145) 09/10/22 04:19 Potassium 4.5 mmol/L (3.5-5.1) 09/10/22 04:19 Chloride 110 mmol/L (98-107) H 09/10/22 04:19 Carbon Dioxide 25 mmol/L (21-32) 09/10/22 04:19 Anion Gap 5 (3-11) 09/10/22 04:19 BUN 27 mg/dl (6-23) H 09/10/22 04:19 Creatinine 1.48 mg/dl (0.6-1.4) H 09/10/22 04:19 Est Cr Clr Drug Dosing 47.0 ml/min 09/10/22 04:19 Est GFR ( Amer) 53.3 ml/min 09/10/22 04:19 Est GFR (Non-Af Amer) 46.0 ml/min 09/10/22 04:19 BUN/Creatinine Ratio 18.2 (10-20) 09/10/22 04:19 Glucose 106 mg/dl (70-99(Fasting)) H 09/10/22 04:19 POC Glucose 183 mg/dl (70-99) H 09/10/22 11:34 Estimat Average Glucose 151 mg/dl 09/10/22 04:19 Hemoglobin A1c 6.9 % (4.5-5.6) H 09/10/22 04:19 Lactate 1.1 mmol/L (0.4-2.0) 09/10/22 04:19 Calcium 7.3 mg/dl (8.5-10.1) L 09/10/22 04:19 Phosphorus 2.5 mg/dl (2.5-4.9) 09/10/22 04:19 Magnesium 1.7 mg/dl (1.7-2.4) 09/10/22 04:19 Iron 21 mcg/dl (35-175) L 09/10/22 04:19 TIBC 253 mcg/dl (250-450) 09/10/22 04:19 Unsaturated IBC 232 mcg/dl (155-355) 09/10/22 04:19 Transferrin % Sat 8 % (20-50) L 09/10/22 04:19 Total Bilirubin 0.4 mg/dl (0.2-1.0) 09/09/22 18:24 AST 42 U/L (13-39) H 09/09/22 18:24 ALT 43 U/L (7-52) 09/09/22 18:24 Alkaline Phosphatase 139 U/L (34-104) H 09/09/22 18:24 Troponin I High Sens Cancelled 09/10/22 02:43 B-Natriuretic Peptide 231 pg/ml (0-100) H 09/09/22 18:24 Total Protein 4.8 gm/dl (6.0-8.3) L 09/09/22 18:24 Albumin 2.6 gm/dl (3.4-5.0) L 09/09/22 18:24 Globulin 2.2 gm/dl (2.5-4.0) L 09/09/22 18:24 Albumin/Globulin Ratio 1.2 (0.9-2) 09/09/22 18:24 Vitamin B12 583 pg/ml (180-914) 09/10/22 02:37 Folate 6.02 ng/ml (>5.38) 09/10/22 02:37 Procalcitonin 3.32 ng/ml (0-0.5) H 09/09/22 09:40 TSH 1.309 uIu/ml (0.300-4.500) 09/09/22 09:40 Random Cortisol 40.39 mcg/dl 09/09/22 09:40 Urine Color Yellow 09/09/22 19:30 Urine Appearance Clear (Clear) 09/09/22 19: Urine pH 5.0 (4.5-7.5) 09/09/22 19: Ur Specific [place] 1.014 (1.000-1.030) 09/09/22 19: Urine Protein Trace (Negative) H 09/09/22 19:30 Urine Glucose (UA) Negative (Negative) 09/09/22 19: Urine Ketones Negative (Negative) 09/09/22 19: Urine Blood Negative (Negative) 09/09/22 19: Urine Nitrite Negative (Negative) 09/09/22 19: Urine Bilirubin Negative (Negative) 09/09/22 19:30 Urine Urobilinogen Negative (Negative) 09/09/22 19:30 Ur Leukocyte Esterase Trace (Negative) H 09/09/22 19:30 Urine WBC (Auto) 10-30 /hpf (0-5) H 09/09/22 19:30 Urine RBC (Auto) 0-4 /hpf (0-4) 09/09/22 19: U Hyaline Cast (Auto) 1-5 /lpf (0-5) 09/09/22 19:30 U Epithel Cells (Auto) 10-20 /lpf (0-5) H 09/09/22 19:30 Urine Bacteria (Auto) Negative (Negative) 09/09/22 19: Urine Osmolality 401 mOsm/kg (500-800) L 09/09/22 19:30 Ur Random Creatinine 97.8 mg/dl 09/09/22 19:30 Ur Random Sodium 71 mmol/L 09/09/22 19:30 Ur Random Potassium 43.4 mmol/L 09/09/22 19:30 Ur Random Chloride 93 mmol/L 09/09/22 19:30 Nasal Screen MRSA (PCR) Negative (Negative) 09/09/22 18:30 Influ A Molecular Assay Negative (Negative) 09/09/22 12:25 Influ B Molecular Assay Negative (Negative) 09/09/22 12:25 RSV (Molecular) Negative (Negative) 09/09/22 12:25 SARS-CoV-2, RNA, NAAT NEGATIVE (NEGATIVE) 09/09/22 11:00 Blood Type AB Positive 09/09/22 12:09 Blood Type Recheck AB Positive 09/09/22 18:24 Antibody Screen NEGATIVE 09/09/22 12:09 Crossmatch See Detail 09/09/22 12:09 Impressions Chest X-Ray 09/09/22 09:42 XR chest 1V portable HISTORY: weakness COMPARISON: None. FINDINGS: No pneumothorax. No pleural effusions. There is mild elevation of the right hemidiaphragm. No focal lung consolidations to suggest a pneumonia. No evidence for pulmonary edema. The heart is normal in size. IMPRESSION: Mild elevation of the right hemidiaphragm. Otherwise, no acute process within the chest. ACT 112: Negative or not required by law. Electronically signed by: Rick Hilton M.D. 09/09/2022 10:[address] 09/09/22 12:34 CT SCAN OF THE BRAIN WITHOUT IV CONTRAST CLINICAL HISTORY: Change in mental status. Presyncope. COMPARISON STUDY: No priors. TECHNIQUE: Unenhanced axial CT scan of the brain is performed from the vertex to the skull base. A dose lowering technique was utilized adhering to the principles of ALARA. CT DOSE: 1228.24 mGy.cm FINDINGS: Brain parenchyma: There is an approximately 5 x 4 cm extra-axial calcified right parafalcine mass in the right frontal lobe seen on axial image #25. There is minimal surrounding edema, and the lesion causes approximately 7 mm of [id number] midline shift. There is age-related involutional change noting minimal microangiopathic disease. No hemorrhage is seen. There is no evidence of acute territorial ischemia by CT criteria. Myers-white matter differentiation is preserved. No extra-axial fluid collection is seen. Ventricles, sulci, cisterns: Prominent secondary to involutional change. Intracranial vasculature: There is minimal atherosclerotic calcification of the cavernous carotid arteries. Calvarium: Unremarkable. Sinuses and mastoids: The paranasal sinuses are clear. The mastoid air cells are well pneumatized. Orbits: The bony orbits are grossly intact. IMPRESSION: 1. There is no hemorrhage or evidence of acute territorial ischemia by CT criteria. 2. There is an approximately 5 cm densely calcified extra-axial right par afalcine mass in the frontal region with minimal surrounding edema and mild localized right to left midline shift. The appearance is typical for a large meningioma. Neurosurgical evaluation is advised. ACT 112: Negative or not required by law. Electronically signed by: Victor Manuel Carter M.D. 09/09/2022 1:22 PM Abdomen/Pelvis CT 09/09/22 12:[address] WITHOUT CONTRAST CT DOSE: 432.15 mGy.cm HISTORY: sepsis, uti TECHNIQUE: Multiaxial CT images of the abdomen and pelvis were performed without contrast. A dose lowering technique was utilized adhering to the principles of ALARA. COMPARISON STUDY: None. FINDINGS: Mild dependent changes seen within the lung bases. No pneumoperitoneum. No pneumatosis. Degenerative changes within the lumbar spine. No acute fractures. The heart is borderline enlarged. Coronary artery calcifications are noted. The unenhanced spleen, adrenal glands, and pancreas unremarkable. There are 2 hypodense lesions within the left kidney with the largest in the upper pole measuring 5.5 cm. These are incompletely characterized on this noncontrast study but favor cysts. There is mild to moderate bilateral perinephric edema. No ureteral stones. No hydronephrosis. Mild bladder wall thickening with adjacent fat stranding. There is also mild fat stranding surrounding the mildly enlarged prostate gland. No pelvic free fluid. No retroperitoneal lymphadenopathy. Normal caliber abdominal aorta. The gallbladder is unremarkable. Suspect mild periportal edema. No pelvic free fluid. Suboptimal evaluation for bowel pathology due to the lack of intravenous and oral contrast. However, there is no definite bowel wall thickening or obstruction. Moderate fecal retention is noted. Normal appendix. There are few prominent gas and fluid-filled loops of proximal jejunum. However, no transition point to suggest a bowel obstruction at this time. IMPRESSION: 1. Mild bladder wall thickening with adjacent fat stranding. This favors a mild cystitis. Is also mild fat stranding adjacent to the enlarged prostate gland which may represent associated prostatitis. 2. Moderate bilateral perinephric edema. This may be chronic. A bilateral pyelonephritis is considered less likely but not entirely excluded. 3. No renal or ureteral stones. No hydronephrosis. 4. No definite bowel wall thickening or obstruction. There are few prominent gas and fluid-filled loops of proximal jejunum. However, no transition point to suggest a bowel obstruction at this time. 5. Suspect mild periportal edema. 6. Normal appendix. ACT 112: Negative or not required by law. Electronically signed by: Rick Hilton M.D. 09/09/2022 1:29 PM Ordered Studies 09/09/22 12:34 CT head/brain wo con Stat 09/09/22 12:50 CT Abd and Pelvis [CT abd pelvis wo con] Stat Hospital Course (1) Shock: Patient is a 72 yr male who presents with sepsis and urinary tract infection. Septic shock Possible source cystitis, prostatitis UTI H/O ESBL --CT ABD:1. Mild bladder wall thickening with adjacent fat stranding. This favors a mild cystitis. Is also mild fat stranding adjacent to the enlarged prostate gland which may represent associated prostatitis. Moderate bilateral perinephric edema. This may be chronic. A bilateral pyelonephritis is considered less likely but not entirely excluded. No renal or ureteral stones. No hydronephrosis. No definite bowel wall thickening or obstruction. There are few prominent gas and fluid-filled loops of proximal jejunum. However, no transition point to suggest a bowel obstruction at this time. Suspect mild periportal edema. Normal appendix. -- Blood, urine culture pending --Empirically received vancomycin, Invanz Currently on vancomycin only Appreciate critical care input Received IV fluids JOSE Likely ATN Cr 1.48 today Monitor renal function Avoid nephrotoxic agents as able Presyncope Suspected large meningioma with mild localized right to left midline shift --CT Head:1. There is no hemorrhage or evidence of acute territorial ischemia by CT criteria. There is an approximately 5 cm densely calcified extra-axial right parafalcine mass in the frontal region with minimal surrounding edema and mild localized right to left midline shift. The appearance is typical for a large meningioma. Neurosurgical evaluation is advised. -- Admitting physician discussed with neurosurgery at [facility] --Accepted to tertiary care facility for further management as patient needs neurosurgery evaluation Frequent falls: Likely due to above Fall precautions PT OT Elevated troponin Likely type II VA Trend troponin QTC prolongation Avoid QTC prolonging meds Monitor Melena S/P 1 unit PRBCs Normal B12, folate Iron 21, transferrin 8 Currently denies any bleeding issues Monitor H&H and transfuse as needed Aspirin held for now FOBT pending High anion gap metabolic acidosis Likely secondary to lactic acidosis Monitor BMP DM II Hold metformin Continue Insulin while hospitalized Hyperlipidemia: On statin. Hypertension: Hold Hyzaar Monitor BP DVT Px: SCDs for now Total Time Total Time Spent Total Time Spent (In Minutes): 59 minutes Discharge Plan Discharge Items Patient Disposition: Transfer Acute Care Hospital Reason For Visit: HYPOTENSION, FALLS, SICK Discharge Diagnosis: Septic shock Possible source cystitis, prostatitis H/O ESBL Acute kidney injury Presyncopal Suspected large meningioma with mild localized right to left midline shift Frequent falls Melena Activity: Per Instructions section Exercise/Sports: Wait until after follow-up appointment Non-emergency contact: Primary Care Provider and Surgeon Call non-emergency contact if: you have any medication questions, your symptoms worsen, your pain is concerning for you and you have a fever Follow-up/Referrals: PCP,NO [Primary Care Provider] - Diet: Carb Consistent or DM2 and Heart Healthy Addtl Attending Provider Instructions: Follow up with , and for further care at [facility] Current Inpatient Medications Acetaminophen (Acetaminophen 325 Mg Tab) 650 mg PO Q4H PRN PRN Reason: Pain or Fever Stop: 10/09/22 14:15 Dextrose (Dextrose 50% 50 Ml Syringe) 25 - 50 ml IV UD PRN; Protocol PRN Reason: Hypoglycemia Protocol Stop: 10/09/22 14:59 Glucagon (Glucagon For Inj 1 Mg Vial) 1 mg IM UD PRN; Protocol PRN Reason: Hypoglycemia Protocol Stop: 10/09/22 14:59 Glucose (Glucose 40% Gel 15 Gm Tube) 15 - 30 gm PO UD PRN; Protocol PRN Reason: Hypoglycemia Protocol Stop: 10/09/22 14:59 Glucose (Glucose 10 Tab/Tube) 4 - 8 tab PO UD PRN; Protocol PRN Reason: Hypoglycemia Protocol Stop: 10/09/22 14:59 Ertapenem 1,000 mg/ Syringe 10 mls @ 2 mls/min IV Q24H JS Stop: 09/19/22 12:14 Last Admin: 09/10/22 11:51 Dose: 2 mls/min Pantoprazole Sodium 40 mg/ (Syringe) 10 mls @ 5 mls/min IV BID JS Stop: 10/09/22 20:59 Last Admin: 09/10/22 08:30 Dose: 5 mls/min Insulin Aspart (Insulin Aspart Per Unit) 0 units SC ACHS [facility] Stop: 10/10/22 11:59 Last Admin: 09/10/22 11:49 Dose: Not Given Miscellaneous (Carbohydrates For Hypoglycemia ) 15 - 30 gm PO UD PRN PRN Reason: Hypoglycemia Treatment Stop: 10/09/22 14:59 Miscellaneous (Icu Electrolyte Replacement Protocol) 1 each N/A BID@06,18 [facility]; Protocol Stop: 09/17/22 05:59 Last Admin: 09/10/22 05:34 Dose: 1 each Nitroglycerin (Nitroglycerin Sl 0.4 Mg/Tab Tab) 0.4 mg SL UD PRN PRN Reason: Chest Pain Stop: 10/09/22 14:15 Pending Studies at Discharge: Yes Studies:: cultures Stand-Alone Forms: My [facility] Skilled Items Patient informed of condition?: Yes DNR: No Discharge Level of Care: Other Communicable Disease: No Discharge Prognosis: Stable Lines: Peripheral IV Urinary Catheter: No Medications and DC Order Prescriptions: Continued atorvastatin 10 mg tablet 10 mg PO HS sulfamethoxazole-trimethoprim 800-160 mg tablet 1 tab PO BID losartan-hydrochlorothiazide 100-25 mg tablet 1 tab PO DAILY metformin 500 mg tablet extended release 24 hr 1,000 mg PO BID aspirin 81 mg Tablet,Delayed Release (Dr/Ec) 81 mg PO DAILY Discharge Orders: Discharge Order (Routine); Ordered 09/10/22 Ordered By: Horace Dunaway/Other Patient Handouts: Managing Type 2 Diabetes Admission Data Admit Date/Time: 09/09/22 12:02 Attending Provider: Horace Vallejo Admit Provider: Tapan Whitmore Primary Care Provider: PCP,NO Other Providers: Tapan Whitmore ; Demetrio Huggins
[2022-09-13 18:02] LABS: Uric Acid, Random Urine 44 mg/dL
== END 2022-09-10 18:42 | disposition short-term general hospital (02) | DRG 871 ==
LOC: ED 09:26 → SUATTDRO 12:02 → EDINP 12:02 → 1E 13:59